=== PATIENT | male | born 1985 | race African-American/Black ===

== ENCOUNTER 2018-07-16 20:45 | Emergency (ER) | payer OTHER ==
[~2018-07-16] VITALS: Ht 185.4 cm; Wt 93.2 kg
[2018-07-16 20:46] VITALS: BP 145/81
[2018-07-16] MEDS ORDERED: NAPROXEN 250 MG TAB PO ONE (21:45)
[2018-07-16] MEDS ORDERED: NAPR-837 PO (22:03)
== END 2018-07-16 22:09 | disposition home or self-care (01) ==
LOC: M ED 20:45
DX: M76.51 Patellar tendinitis, right knee (principal)

== ENCOUNTER 2019-12-26 11:32 | Emergency (ER) | payer OTHER ==
[~2019-12-26] VITALS: Ht 182.9 cm; Wt 101.4 kg
[~2019-12-26 11:32] MED LIST: NAPR-837 PO
[2019-12-26 11:45] VITALS: BP 145/89
== END 2019-12-26 12:26 | disposition home or self-care (01) ==
LOC: M ED 11:32
DX: L03.011 Cellulitis of right finger (principal); Z79.2 Long term (current) use of antibiotics